=== PATIENT | male | born 2000 | race Two or more races ===

== ENCOUNTER 2022-07-31 17:07 | Emergency (ER) | payer OTHER ==
[2022-07-31 17:41] VITALS: BP 133/85
== END 2022-08-01 00:20 | disposition left against medical advice (07) ==
LOC: ER 17:07
DX: S69.91XA Unspecified injury of right wrist, hand and finger(s), initial encounter (principal); M79.641 Pain in right hand; Z53.21 Procedure and treatment not carried out due to patient leaving prior to being seen by health care provider; X58.XXXA Exposure to other specified factors, initial encounter; Y93.89 Activity, other specified; Y92.89 Other specified places as the place of occurrence of the external cause; Y99.8 Other external cause status
CPT/HCPCS: 73110; 73130